=== PATIENT | female | born 1950 | race Caucasian/White ===

== ENCOUNTER 2019-03-27 09:57 | Day surgery (SDC) | payer MEDICARE ==
[~2019-03-27 09:57] MED LIST: ACETAMINOPHEN 325 MG TABLET PO PRN; CEFAZOLIN SODIUM 2 GM in DEXTROSE 5%-WATER 100 ML IV PRN; CELECOXIB 200 MG CAPSULE PO PRN; GABAPENTIN 100 MG CAPSULE PO PRN; LACTATED RINGERS 1000 ML IV PRN; LIDOCAINE 0.5% INJ-PF (5 MG/ML) 50 ML SDV SUBCUT PRN; ONDANSETRON HCL INJ/PF 4 MG/2 ML SDV IV PRN; OXYCODONE HCL SR 10 MG TABLET PO PRN; SCOPOLAMINE HYDROBROMIDE 1.5 MG PATCH.TD72 TD PRN; TRAMADOL HCL 50 MG TABLET PO PRN; TRANEXAMIC ACID INJ/PF 1,000 MG/10 ML SDV IV PRN; VANCOMYCIN HCL 1,000 MG in DEXTROSE 5%-WATER 250 ML IV PRN
[2019-03-27] MEDS ORDERED: FENTANYL CITRATE INJ/PF 100 MCG/2 ML AMPUL ONE (10:10)
[2019-03-27] MEDS ORDERED: EPHEDRINE SULFATE INJ 50 MG/1 ML AMPULE ONE (10:10)
[2019-03-27] MEDS ORDERED: MIDAZOLAM 2 MG/2 ML INJ ONE (10:10)
[2019-03-27] MEDS ORDERED: TRANEXAMIC ACID INJ/PF 1,000 MG/10 ML SDV ONE (10:11)
[2019-03-27] MEDS ORDERED: ONDANSETRON HCL INJ/PF 4 MG/2 ML SDV ONE ×3 (10:11→15:30)
[2019-03-27] MEDS ORDERED: PROPOFOL INJ 200 MG/20 ML VIAL IV ONE (10:11)
[2019-03-27] MEDS ORDERED: EPINEPHRINE INJ/PF 1 MG/1 ML AMPULE ONE (10:15)
[2019-03-27] MEDS ORDERED: CELECOXIB 200 MG CAPSULE ONE (10:23)
[2019-03-27] MEDS ORDERED: ACETAMINOPHEN 325 MG TABLET ONE (10:23)
[2019-03-27] MEDS ORDERED: OXYCODONE HCL SR 10 MG TABLET PO ONE (10:24)
[2019-03-27] MEDS ORDERED: GABAPENTIN 100 MG CAPSULE ONE (10:24)
[2019-03-27] MEDS ORDERED: CEFAZOLIN INJ 1 GM VIAL ONE (10:25)
[2019-03-27] MEDS ORDERED: TRAMADOL HCL 50 MG TABLET ONE (10:28)
[2019-03-27] MEDS ORDERED: SCOPOLAMINE HYDROBROMIDE 1.5 MG PATCH.TD72 ONE (10:28)
[2019-03-27] MEDS ORDERED: BACITRACIN INJ 50,000 UNIT VIAL IR ONE (12:24)
[2019-03-27] MEDS ORDERED: GENTAMICIN SULFATE INJ 80 MG/2 ML VIAL IV ONE (12:25)
[2019-03-27] MEDS ORDERED: VANCOMYCIN HCL INJ 1000 MG VIAL IV ONE (12:29)
[2019-03-27] MEDS ORDERED: KETOROLAC TROMETHAMINE INJ/PF 30 MG/1 ML SDV INJ ONE (12:30)
[2019-03-27] MEDS ORDERED: BUPIVACAINE HCL 0.25 % INJ/PF (2.5 MG/1 ML) 30 ML VIAL INJ ONE (12:30)
[2019-03-27] MEDS ORDERED: MEPERIDINE HCL/PF INJ 25 MG/1 ML DISP.SYRIN IV PRN (12:47)
[2019-03-27] MEDS ORDERED: PROMETHAZINE HCL INJ 25 MG/1 ML VIAL IV PRN ×3 (12:47→16:41)
[2019-03-27] MEDS ORDERED: ONDANSETRON HCL INJ/PF 4 MG/2 ML SDV IV PRN ×2 (12:47→16:14)
[2019-03-27] MEDS ORDERED: DIPHENHYDRAMINE HCL 50 MG/ML VIAL IV PRN (12:47)
[2019-03-27] MEDS ORDERED: MORPHINE SULFATE 10 MG/ML INJ IV PRN ×2 (12:47→16:41)
[2019-03-27] MEDS ORDERED: FENTANYL CITRATE INJ/PF 100 MCG/2 ML AMPUL IV PRN ×3 (12:47)
--- NOTE | 2019-03-27 14:12 | Operative Report ---
Operative Report DATE OF SURGERY: 03/27/19 PREOPERATIVE DIAGNOSIS: Right knee primary osteoarthritis POSTOPERATIVE DIAGNOSIS: Right knee primary osteoarthritis OPERATION: Right total knee arthroplasty SURGEON: KP SHERMAN JR ANESTHESIA: Spinal COMPLICATIONS: none PROCEDURE: Components: Left total knee: Biomet Vanguard 62.5 femur, 67 x 12 x tibia, and a 31 patella BRIEF HISTORY: 68year old female with severe degenerative arthritis of left knee, which has failed conservative treatment and has elected for a total knee arthroplasty. They had been having severe debilitating pain that was preventing her from performing daily activities including ambulating for short distances, getting in and out of there car, going up and down stairs, and overall decreas ing their quality of life due to their avoidance of activity because of pain. That failed conservative management including kgvs-ylf-xvqtabv pain medication such as Tylenol and ibuprofen. X-rays demonstrated severe cmyx-pa-lner osteoarthritis with subchondral sclerosis osteophyte formation and joint space narrowing. Risks include but are not limited to bleeding, infection, anesthesia, , injury to nerve or vessel, pain, scar, leg length inequality, dislocation, future surgery, and blood clots. Patient read through the pre-op counseling form and signed and solicited for surgery on their left knee. OPERATIVE PROCEDURE: Patient was brought to the operating room on and underwent spinal anesthesia. After proper anesthesia was obtained, patient was positioned, padded, prepped, and draped in the usual sterile fashion on the operating room table. 2 grams of Ancef and 1 g of vancomycin were given. Appropriate time out was performed. Anterior incision and medial-parapatella approach was performed. Severe degenerative arthritis was noted. Osteophytes were removed from the femur and tibia, and the remainder of the ACL and PCL were removed. The distal femur was drilled, the canal was irrigated and the distal femoral guide was placed. The distal femur was cut to 5 degrees of varus. The proximal tibia was then prepared and cut perpendicular to the tibial shaft axis and measured to a 67 tibia. The tensor was placed in flexion and the femur was sized to 62.5. The AP block was placed and anterior-posterior cuts were made. Posterior osteophytes were removed and the flexion gap measured to be 10 mm. The tensor was placed in extension and the extension gap was balanced with releases until the goniometer on the tensor measured to 0. A 10 block was used to confirm symmetric flexion and extension gaps. The femoral notch and chamfer cuts were made, and trial femur placed which had excellent fit. The rotating tibial plastic was placed and rotation marked. The stemmed tibial cutout was made for the stemmed tibial trial and excellent stability was had in flexion and extension. The patella AP aspect was measured to 20 mm and patella was cut parallel to the anterior patella surface. A 31 mm button was placed medially and superiorly as possible and the patella-button construct again measured 20 mm. The patella tracked well. No need for a lateral release. Cement fixation places made on the femur and tibia, and pulsatile irrigation of the eladio and soft tissue surfaces. The eladio surfaces were cleaned and dried, and cementation of the femur, tibia, and patella. Periarticular injection with Marcaine and Toradol was performed. The knee was irrigated with antibiotic solution, betadine solution, and antibiotic solution. A gram of Vancomycin was placed intra-articularly. The extensor mechanism was closed with number 2 Stratofix, the subcutaneous tissue closed with 2-0 Vicryl and the skin closed with 3-0 running monocryl. A silver dressing was applied. All needle sponge and instrument counts were correct. Patient was awakened from sedation anesthesia and taken to recovery room in good condition. Kp Sherman DO
[2019-03-27] MEDS ORDERED: VANCOMYCIN HCL INJ 1000 MG VIAL ONE (14:45)
[2019-03-27] MEDS ORDERED: BACITRACIN INJ 50,000 UNIT VIAL ONE (14:45)
[2019-03-27] MEDS ORDERED: ROPIVACAINE HCL 0.5% INJ/PF (5 MG/1 ML) 30 ML SDV ONE (14:52)
[2019-03-27] MEDS ORDERED: LIDOCAINE 2% INJ (20 MG/ML) 20 ML MDV ONE (14:52)
[2019-03-27] MEDS ORDERED: LIDOCAINE 2%/EPINEPHRINE INJ 20 ML VIAL ONE (14:52)
[2019-03-27] MEDS ORDERED: ONDANSETRON HCL INJ/PF 4 MG/2 ML SDV IV ONE (15:30)
--- NOTE | 2019-03-27 15:40 | RADIOLOGY REPORT (SQ) ---
EXAM DESCRIPTION: KNEE LEFT 2 VIEWS COMPLETED DATE/TIME: 03/27/2019 2:55 pm REASON FOR STUDY: post op M17.12 UNILATERAL PRIMARY OSTEOARTHRITIS, LEFT KNEE COMPARISON: None. NUMBER OF VIEWS: Two views. TECHNIQUE: AP and lateral radiographic images acquired of the left knee. LIMITATIONS: None. FINDINGS: Postoperative images show a total knee arthroplasty in good position. IMPRESSION: Total knee arthroplasty. Refer to operative note for further information. TECHNICAL DOCUMENTATION: JOB ID: [id number] [employer]- All Rights Reserved Reading location - IP/workstation name: [email or web address]
[2019-03-27] MEDS ORDERED: HYDRALAZINE HCL INJ/PF 20 MG/1 ML SDV IV PRN (16:41)
[2019-03-27] MEDS ORDERED: OXYCODONE-ACETAMINOPHEN 5-325 MG TABLET PO PRN (16:41)
[2019-03-27] MEDS ORDERED: METOPROLOL TARTRATE PF/INJ 5 MG/5 ML SDV IV PRN (16:43)
--- NOTE | 2019-03-27 17:30 | PDOC CONSULTATION ---
Consultation Consult Date: 03/27/19 Attending physician:: KE SHERMAN JR Provider Consulted: ASPEN BARRON Consult reason:: Medical managment History of Present Illness History of Present Illness: JULIA HUMPHREYS is a 68 year old female past medical history of hypertension, hyperlipidemia, hypothyroidism, diabetes, osteoarthritis who is status post left knee arthroplasty by orthopedic surgeons. Hospitalist was consulted for medical management. Was able to see patient postoperatively resting in bed, stating that she is very hungry, complaining of being nauseous, otherwise denying any fever, chills, abdominal pain, diarrhea, constipation or any urinary symptoms. Past Medical History Cardiac Medical History: Reports: Hyperlipidema, Hypertension Denies: Atrial Fibrillation, Congestive Heart Failure, Coronary Artery Disease, Myocardial Infarction, Peripheral Vascular Disease, Heart Murmur Pulmonary Medical History: Denies: Asthma, Bronchitis, Chronic Obstructive Pulmonary Disease (COPD), Sleep Apnea Neurological Medical History: Denies: Seizures Endocrine Medical History: Reports: Hypothyroidism Denies: Hyperthyroidism Malignancy Medical History: Reports: Breast Cancer Denies: Cervical Cancer, Ovarian Cancer GI Medical History: Reports: Gastroesophageal Reflux Disease Denies: Crohn's Disease, Hiatal Hernia Musculoskeltal Medical History: Reports: Arthritis Denies: Fibromyalgia Psychiatric Medical History: Denies: Bipolar Disorder, Depression, Post Traumatic Stress Disorder Past Surgical History Past Surgical History: Reports: Tubal Ligation Denies: Amputation, Appendectomy, Section, Cholecystectomy, Colostomy, Coronary Artery Bypass Graft, Gastric Bypass Surgery, Herniorrhaphy, Hysterectomy, Mastectomy, Pacemaker, Tonsillectomy Social History Smoking Status: Never Smoker Electronic Cigarette use?: No Frequency of Alcohol Use: Social Hx Recreational Drug Use: No Hx Prescription Drug Abuse: No - Advance Directive Resuscitation Status: Full Code Family History Parental Family History Reviewed: Yes Children Family History Reviewed: Yes Sibling(s) Family History Reviewed.: Yes Medication/Allergy Home Medications: Calcium Carbonate/Vitamin D3 [Calcium 600 + Vit D 400 Softgl] 1 cap PO DAILY 03/15/19 Cholecalciferol (Vitamin D3) [Vitamin D3] 2,000 unit PO DAILY 03/15/19 Losartan/Hydrochlorothiazide [Losartan-Hctz 100-25 mg Tab] 1 tab PO DAILY 03/15/19 Amlodipine Besylate [Norvasc 10 mg Tablet] 10 mg PO DAILY 03/19/19 Dulaglutide [Trulicity] 1.5 mg SQ Q7D 03/19/19 Empagliflozin [Jardiance] 10 mg PO DAILY 03/19/19 Fulvestrant [Faslodex Inj 250 mg/5 ml Syringe] 03/19/19 Insulin Regular, Human [Humulin R U-500 Kwikpen] 100 units SQ TID 03/19/19 Levothyroxine Sodium [Synthroid 0.075 mg Tablet] 0.075 mg PO DAILY 03/19/19 Loratadine [Claritin 10 mg Tablet] 10 mg PO PRN PRN 03/19/19 Lorcaserin HCl [Belviq Xr] 20 mg PO DAILY 03/19/19 Metformin HCl 500 mg PO BID 03/19/19 Nebivolol HCl [Bystolic 10 mg Tablet] 20 mg PO DAILY 03/19/19 Omeprazole 20 mg PO BID 03/19/19 Rosuvastatin Calcium 10 mg PO DAILY 03/19/19 Allergies/Adverse Reactions: metronidazole [From Flagyl] Allergy (Intermediate, Verified 03/06/19 13:45) Swelling of Throat Review of Systems Review of Systems: as per hpi Physical Exam Vital Signs: Temp Pulse Resp BP Pulse Ox 97.5 F 83 18 116/49 L 98 03/27/19 16:57 03/27/19 16:57 03/27/19 16:57 03/27/19 16:57 03/27/19 16:57 Intake & Output 03/26/19 03/27/19 03/28/19 06:59 06:59 06:59 Intake Total 0 Balance 0 General appearance: PRESENT: morbidly obese Head exam: PRESENT: atraumatic, normocephalic Respiratory exam: PRESENT: clear to auscultation matt. ABSENT: rales, rhonchi, wheezes Cardiovascular exam: PRESENT: RRR. ABSENT: diastolic murmur, rubs, systolic murmur GI/Abdominal exam: PRESENT: normal bowel sounds, soft. ABSENT: distended, guarding, mass, organolmegaly, rebound, tenderness Neurological exam: PRESENT: alert, awake, oriented to person, oriented to place, oriented to time, oriented to situation, CN II-XII grossly intact. ABSENT: motor sensory deficit Results Laboratory Results: 03/27/19 11:27 03/27/19 11:27 Potassium 4.1 Impressions: Knee X-Ray 03/27/19 14:14 IMPRESSION: Total knee arthroplasty. Refer to operative note for further information. Assessment and Plan - Diagnosis (1) Diabetes Qualifiers: Diabetes mellitus type: type 2 Is this a current diagnosis for this admission?: Yes Plan: No hemoglobin A1c available History of difficult to control diabetes. Sees an system programmer outpatient. Home medications are: Metformin 500 mg p.o. twice daily. Insulin regular 100 units subcutaneous 3 times daily. Trulicity 1.5 mg q. 7 days We will start on prandial and sliding scale insulin, metformin, diabetic diet, Accu-Chek, hypoglycemic protocol. Will obtain A1c. Restart home meds upon discharge. Outpatient PCP endocrinology follow-up. (2) Hypertension Is this a current diagnosis for this admission?: Yes Plan: Euvolemic. Normotensive. Home meds are Meds: Bystolic 20 mg p.o. daily, losartan 100 mg p.o. daily, hydrochlorothiazide 25 mg p.o. daily, amlodipine 10 mg p.o. daily. Restart home meds. Monitor volume status and vitals. Adjust meds as needed. Outpatient PCP follow-up. (3) Hyperlipidemia Is this a current diagnosis for this admission?: Yes Plan: Takes Crestor 10 mg p.o. daily. Restart home meds. Outpatient PCP follow-up. Diet and lifestyle modification recommended. (5) Obesity Qualifiers: Body mass index: BMI 40.0-44.9 Is this a current diagnosis for this admission?: Yes Plan: BMI 40.3. Lack of physical activity due to osteoarthritis may be a contributing factor. History of hypothyroidism. No TSH available. Diet and lifestyle modification recommended. (6) Osteoarthritis Qualifiers: Osteoarthritis location: knee Laterality: left Is this a current diagnosis for this admission?: Yes Plan: Status post left knee arthroplasty. Will defer management to orthopedics.
[2019-03-27] MEDS ORDERED: METFORMIN HCL 500 MG PO SCH (18:00)
[2019-03-27] MEDS ORDERED: INSULIN REGULAR HUMAN 100 UNIT SUBCUT SCH (18:00)
[2019-03-27] MEDS ORDERED: DEXTROSE 40% GEL 15 GM TUBE X 2 PO PRN (19:00)
[2019-03-27] MEDS ORDERED: GLUCAGON,HUMAN RECOMB 1 MG INJ IM PRN (19:00)
[2019-03-27] MEDS ORDERED: DEXTROSE 50%-WATER SYRINGE 25 GM/50 ML DOSE IV PRN (19:00)
[2019-03-27] MEDS ORDERED: DEXTROSE 40% GEL 15 GM TUBE PO PRN (19:00)
[2019-03-27] MEDS ORDERED: DEXTROSE 50%-WATER SYRINGE 12.5 GM/25 ML DOSE IV PRN (19:00)
[2019-03-27] MEDS: NEBIVOLOL HCL 10 MG TABLET PO SCH (19:01)
[2019-03-27] MEDS ORDERED: METFORMIN HCL 500 MG TABLET PO SCH (20:00)
[2019-03-27] MEDS: INSULIN LISPRO 100 UNIT/ML 3 ML VIAL SUBCUT SCH (21:15)
[2019-03-27] MEDS: PANTOPRAZOLE SODIUM 20 MG TABLET.DR PO SCH (21:16)
[2019-03-27] MEDS: CEFAZOLIN SODIUM 3 GM in DEXTROSE 5%-WATER 100 ML IV SCH (21:16)
[2019-03-27] MEDS ORDERED: ATORVASTATIN CALCIUM 20 MG TABLET PO SCH (22:00)
[2019-03-27] MEDS ORDERED: INSULIN REG, HUMAN 100 UNIT/ML 3 ML VIAL (PYX) SUBCUT SCH (22:00)
[2019-03-28] MEDS: CEFAZOLIN SODIUM 3 GM in DEXTROSE 5%-WATER 100 ML IV SCH (04:00)
[2019-03-28] MEDS ORDERED: ACETAMINOPHEN 325 MG TABLET ONE (05:20)
[2019-03-28] MEDS ORDERED: OXYCODONE HCL IR 5 MG TABLET PO PRN ×2 (07:15)
[2019-03-28] MEDS ORDERED: MORPHINE SULFATE 10 MG/ML INJ IV PRN (07:15)
[2019-03-28] MEDS ORDERED: TRAMADOL HCL 50 MG TABLET PO PRN (07:16)
[2019-03-28] MEDS ORDERED: DIPHENHYDRAMINE HCL 25 MG CAPSULE PO PRN (07:18)
[2019-03-28] MEDS ORDERED: ZOLPIDEM TARTRATE 5 MG TABLET PO PRN (07:18)
[2019-03-28] MEDS ORDERED: NORMAL SALINE 1000 ML 1,000 ML IV PRN (07:20)
[2019-03-28] MEDS ORDERED: DOCUSATE SODIUM 100 MG CAPSULE PO PRN (07:20)
[2019-03-28] MEDS ORDERED: ONDANSETRON 4 MG TAB.RAPDIS PO PRN (07:21)
[2019-03-28 07:42] LABS: ALBUMIN 3.9 g/dL (3.5-5.0); ALKALINE PHOSPHATASE 49 U/L (38-126); ANION GAP 11 (5-19); ASPARTATE AMINO TRANSFERASE 20 U/L (14-36); BILIRUBIN,DIRECT 0.2 mg/dL (0.0-0.4); BILIRUBIN,TOTAL 0.4 mg/dL (0.2-1.3); BLOOD UREA NITROGEN 21 mg/dL (7-20); CALCIUM 9.5 mg/dL (8.4-10.2); CARBON DIOXIDE 26 mmol/L (22-30); CHLORIDE 102 mmol/L (98-107); GLUCOSE 229 mg/dL (75-110); POTASSIUM 4.2 mmol/L (3.6-5.0); TOTAL PROTEIN 6.1 g/dL (6.3-8.2)
[2019-03-28 08:01] LABS: ABSOLUTE EOSINOPHILS # (AUTO) 0.1 10^3/uL (0.0-0.6); ABSOLUTE LYMPHOCYTES (AUTO) 0.9 10^3/uL (0.5-4.7); ABSOLUTE MONOCYTES (AUTO) 0.5 10^3/uL (0.1-1.4); ABSOLUTE NEUT (AUTO) 6.1 10^3/uL (1.7-8.2); BASOPHILS % (AUTO) 0.4 % (0-2); EOSINOPHILS % (AUTO) 1.1 % (0-6); HEMATOCRIT 36.6 % (36.0-47.0); LYMPHOCYTES % (AUTO) 11.9 % (13-45); MEAN CORPUSCULAR HGB CONC 32.8 g/dL (32.0-36.0); MEAN CORPUSCULAR VOLUME 79 fl (80-97); MONOCYTES % (AUTO) 6.4 % (3-13); PLATELET COUNT 209 10^3/uL (150-450); RED BLOOD COUNT 4.61 10^6/uL (3.72-5.28); RED CELL DISTRIBUTION WIDTH 15.3 % (11.5-14.0); SEGMENTED NEUTROPHILS % (AUTO) 80.2 % (42-78); TOTAL CELLS COUNTED % (AUTO) 100 %; WHITE BLOOD COUNT 7.6 10^3/uL (4.0-10.5)
--- NOTE | 2019-03-28 08:18 | PDOC PROGRESS REPORT ---
Subjective Progress Note for:: 03/28/19 Subjective:: The patient is doing well this AM. Pain is present but not out of proportion and well controlled on their current medications. There are no new symptoms or overnight events. Overall they are felling well without complaints. They deny chest pain, shortness of breath or motor or sensory loss. Reason For Visit: M17.12 UNILATERAL PRIMARY OSTEOARTHRITIS, LEFT KNE Physical Exam Vital Signs: Temp Pulse Resp BP Pulse Ox 97.8 F 92 20 128/57 H 90 L 03/27/19 23:49 03/27/19 23:49 03/27/19 23:49 03/27/19 23:49 03/27/19 23:49 Intake & Output 03/27/19 03/28/19 03/29/19 06:59 06:59 06:59 Intake Total 3020 Output Total 50 Balance 2970 Physical Exam: General appearance: PRESENT: no acute distress, cooperative, obese Head exam: PRESENT: atraumatic, normocephalic Eye exam: PRESENT: EOMI Ear exam: PRESENT: normal external ear exam Mouth exam: PRESENT: neck supple Neck exam: ABSENT: tracheal deviation Respiratory exam: PRESENT: symmetrical, unlabored. ABSENT: accessory muscle use, wheezes Pulses: PRESENT: normal radial pulses, normal dorsalis pedis pul Vascular exam: PRESENT: normal capillary refill GI/Abdominal exam: ABSENT: distended, firm Extremities exam: PRESENT: full ROM of bilateral shoulders, elbows wrists, knees, hips and ankles without pain Musculoskeletal exam: PRESENT: full ROM, normal inspection of all 4 extremities aside from that noted below. Neurological exam: PRESENT: alert, awake, oriented to person, oriented to place, oriented to time Psychiatric exam: PRESENT: appropriate affect. ABSENT: agitated Focused psych exam: ABSENT: catatonic Skin exam: PRESENT: intact. ABSENT: dry All as above aside from that noted in the HPI and the following: Left lower extremity -Pulses 2+ distally -Compartments soft -Wound clean dry and intact no drainage in appropriate swelling for postop day -Sensation grossly intact to L3-4-5 S1 -Motor grossly intact to EHL TA gastroc and quad - Able to perform quad extension and elevate heel off of bed. Results Laboratory Results: 03/28/19 06:59 03/28/19 06:59 03/27/19 03/28/19 03/28/19 11:27 06:59 06:59 WBC 7.6 RBC 4.61 Hgb 12.0 Hct 36.6 MCV 79 L MCH 26.0 L MCHC 32.8 RDW 15.3 H Plt Count 209 Seg Neutrophils % 80.2 H Sodium 139.0 Potassium 4.1 4.2 Chloride 102 Carbon Dioxide 26 Anion Gap 11 BUN 21 H Creatinine 1.02 Est GFR ( Amer) > 60 Glucose 229 H Calcium 9.5 Magnesium 1.7 Total Bilirubin 0.4 AST 20 Alkaline Phosphatase 49 Total Protein 6.1 L Albumin 3.9 Impressions: Knee X-Ray 03/27/19 14:14 IMPRESSION: Total knee arthroplasty. Refer to operative note for further information. Assessment & Plan - Diagnosis (1) Status post total left knee replacement Is this a current diagnosis for this admission?: Yes Plan: - 2 doses of Ancef postoperatively q 8 hours to complete 24 hours pe rioperatively -Weightbearing as tolerated, no precautions, encourage out of bed DEANGELO for ADL training - PT/OT -aspirin 325 daily for DVT prophylaxis for 6 weeks -multimodal pain management to avoid excessive narcotics, including gabapentin, tramadol, Toradol, acetaminophen. -Dressing should not be removed for 7 to 10 days until seen in the office -May shower with the dressing intact, if it starts to come off she should not get the incision wet. -I would like to follow the patient my office within the next 7 to [address] [place] [address]. in [place] office #: [phone] - Time Time Spent with patient: 15-24 minutes
[2019-03-28] MEDS: INSULIN LISPRO 100 UNIT/ML 3 ML VIAL SUBCUT SCH ×2 (08:25→12:23)
[2019-03-28] MEDS ORDERED: VITAMIN D3 PO SCH (10:00)
[2019-03-28] MEDS ORDERED: GABAPENTIN 100 MG CAPSULE PO SCH (10:00)
[2019-03-28] MEDS ORDERED: CALCIUM CARBONATE 250 MG/VITAMIN D3 125 UNIT TABLET PO SCH (10:00)
[2019-03-28] MEDS ORDERED: LOSARTAN POTASSIUM 50 MG TABLET PO SCH (10:00)
[2019-03-28] MEDS ORDERED: HYDROCHLOROTHIAZIDE 25 MG TABLET PO SCH (10:00)
[2019-03-28] MEDS ORDERED: (PENDING PHARMACY ID) (Rosuvastatin Calcium [Rosuvastatin Calcium] 10 MG) PO SCH (10:00)
[2019-03-28] MEDS ORDERED: (PENDING PHARMACY ID) (Cholecalciferol (Vitamin D3) [Vitamin D3] 2,000 UNIT) PO SCH (10:00)
[2019-03-28] MEDS ORDERED: POLYETHYLENE GLYCOL 3350 POWDER 17 GM/1 PACKET PO SCH (10:00)
[2019-03-28] MEDS ORDERED: CALCIUM CARBONATE PO SCH (10:00)
[2019-03-28] MEDS ORDERED: CHOLECALCIFEROL (D3) 1,000 UNIT (25 MCG) TABLET PO SCH (10:00)
[2019-03-28] MEDS ORDERED: [UNRECOGNIZED DRUG - OTHER] PO SCH (10:00)
[2019-03-28] MEDS ORDERED: (PENDING PHARMACY ID) (Losartan/Hydrochlorothiazide [Losartan-Hctz 100-25 Mg Tab] 1 TAB) PO SCH (10:00)
[2019-03-28] MEDS ORDERED: AMLODIPINE BESYLATE 10 MG TABLET PO SCH (10:00)
[2019-03-28] MEDS ORDERED: KETOROLAC TROMETHAMINE INJ/PF 30 MG/1 ML SDV IV SCH (10:00)
[2019-03-28] MEDS ORDERED: LEVOTHYROXINE SODIUM 0.075 MG TABLET PO SCH (10:00)
[2019-03-28] MEDS ORDERED: (PENDING PHARMACY ID) (Empagliflozin [Jardiance] 10 MG) PO SCH (10:00)
[2019-03-28] MEDS: NEBIVOLOL HCL 10 MG TABLET PO SCH (10:34)
[2019-03-28] MEDS: PANTOPRAZOLE SODIUM 20 MG TABLET.DR PO SCH (10:34)
[2019-03-28 13:26] VITALS: BP 115/61
[2019-03-28] MEDS ORDERED: ACETAMINOPHEN 325 MG TABLET PO SCH (14:00)
[2019-03-28] MEDS ORDERED: (PENDING PHARMACY ID) (Metformin Hcl [Metformin Hcl] 1,000 MG) PO SCH (18:00)
[2019-03-29] MEDS ORDERED: CELECOXIB 200 MG CAPSULE PO SCH (10:00)
[2019-03-29] MEDS ORDERED: ASPIRIN 325 MG TABLET, ENT COATED PO SCH (10:00)
--- NOTE | 2019-04-01 20:14 | PDOC DISCHARGE SUMMARY ---
Impression - Admit/DC Date/PCP Admission Date/Primary Care Provider: 03/27/19 Discharge Date: 03/28/19 - Discharge Diagnosis (1) Status post total left knee replacement Is this a current diagnosis for this admission?: Yes - Assessment Summary: Julia Humphreys is a very pleasant 68-year-old female who presented to my clinic with chronic right knee pain that is been going on for over a year. After th orough work-up and attempts at conservative treatment including activity modification and njzc-qha-impnzqj pain medication, they were having severe difficulty with ambulation and was over the counter pain medication for daily activity. They found the pain debilitating and decreasing thier quality of life as they were unable to perform activities of daily living such as ambulating short distances and getting in and out of the car. After a thorough work-up including x-rays that demonstrated joint space narrowing, vgiu-ll-asid contact, subchondral sclerosis, and osteophyte formation as well as discussing risks and benefits and other treatment options, the patient elected to proceed with a right total knee arthroplasty. They were brought to the operating room on 03/27/19 and underwent a right total knee arthroplasty and tolerated procedure very well with out complication. They were then admitted to the hospital floor for postoperative medical management, monitoring, and pain control. On postoperative day #1 they were ambulating well with physical therapy, to the degree that they approved them for discharge home. They were discharged home on 03/28/19. They had no acute events or complications over the course of their stay. All detailed instructions and prescriptions were provided to the patient prior to admission on the year prior office visit. - Additional Information Resuscitation Status: Full Code Discharge Diet: Diabetic Discharge Activity: Activity As Tolerated, No Driving, Keep Legs Elevated, No Lifting/Push/Pulling, Slowly Increase Activity, No tub bath, Walk Frequently Referrals: [facility] [Outside] KE SHERMAN JR, DO [ACTIVE PROVISIONAL STAFF] - 04/09/19 1:20 pm Home Medications: Calcium Carbonate/Vitamin D3 [Calcium 600 + Vit D 400 Softgl] 1 cap PO DAILY 03/15/19 Losartan/Hydrochlorothiazide [Losartan-Hctz 100-25 mg Tab] 1 tab PO DAILY 03/15/19 Amlodipine Besylate [Norvasc 10 mg Tablet] 10 mg PO DAILY 03/19/19 Dulaglutide [Trulicity] 1.5 mg SQ MO@1000 03/19/19 Empagliflozin [Jardiance] 10 mg PO DAILY 03/19/19 Fulvestrant [Faslodex Inj 250 mg/5 ml Syringe] 500 mg INJ .QMONTHLY 03/19/19 Insulin Regular, Human [Humulin R U-500 Kwikpen] 100 units SQ MEALS 03/19/19 Levothyroxine Sodium [Synthroid 0.075 mg Tablet] 0.075 mg PO Q6AM 03/19/19 Loratadine [Claritin 10 mg Tablet] 10 mg PO DAILY 03/19/19 Lorcaserin HCl [Belviq Xr] 20 mg PO DAILY 03/19/19 Metformin HCl 1,000 mg PO QPM 03/19/19 Nebivolol HCl [Bystolic 10 mg Tablet] 20 mg PO DAILY 03/19/19 Omeprazole 20 mg PO BID 03/19/19 Rosuvastatin Calcium 10 mg PO DAILY 03/19/19 Cholecalciferol (Vitamin D3) [Vitamin D3 1000 Unit Tablet] 3,000 unit PO DAILY 03/27/19 History of Present Illiness History of Present Illness: JULIA HUMPHREYS is a 68 year old female Physical Exam Vital Signs: Temp Pulse Resp BP Pulse Ox 98.1 F 80 16 115/61 92 03/28/19 13:25 03/28/19 13:25 03/28/19 13:25 03/28/19 13:25 03/28/19 13:25 Results Laboratory Results: WBC 7.6 10^3/uL (4.0-10.5) 03/28/19 06:59 RBC 4.61 10^6/uL (3.72-5.28) 03/28/19 06:59 Hgb 12.0 g/dL (12.0-15.5) 03/28/19 06:59 Hct 36.6 % (36.0-47.0) 03/28/19 06:59 MCV 79 fl (80-97) L 03/28/19 06:59 MCH 26.0 pg (27.0-33.4) L 03/28/19 06:59 MCHC 32.8 g/dL (32.0-36.0) 03/28/19 06:59 RDW 15.3 % (11.5-14.0) H 03/28/19 06:59 Plt Count 209 10^3/uL (150-450) 03/28/19 06:59 Lymph % (Auto) 11.9 % (13-45) L 03/28/19 06:59 [place] % (Auto) 6.4 % (3-13) 03/28/19 06:59 Eos % (Auto) 1.1 % (0-6) 03/28/19 06:59 Baso % (Auto) 0.4 % (0-2) 03/28/19 06:59 Absolute Neuts (auto) 6.1 10^3/uL (1.7-8.2) 03/28/19 06:59 Absolute Lymphs (auto) 0.9 10^3/uL (0.5-4.7) 03/28/19 06:59 Absolute Monos (auto) 0.5 10^3/uL (0.1-1.4) 03/28/19 06:59 Absolute Eos (auto) 0.1 10^3/uL (0.0-0.6) 03/28/19 06:59 Absolute Basos (auto) 0.0 10^3/uL (0.0-0.2) 03/28/19 06:59 Seg Neutrophils % 80.2 % (42-78) H 03/28/19 06:59 Sodium 139.0 mmol/L (137-145) 03/28/19 06:59 Potassium 4.2 mmol/L (3.6-5.0) 03/28/19 06:59 Chloride 102 mmol/L (98-107) 03/28/19 06:59 Carbon Dioxide 26 mmol/L (22-30) 03/28/19 06:59 Anion Gap 11 (5-19) 03/28/19 06:59 BUN 21 mg/dL (7-20) H 03/28/19 06:59 Creatinine 1.02 mg/dL (0.52-1.25) 03/28/19 06:59 Est GFR ( Amer) > 60 (>60) 03/28/19 06:59 Est GFR (MDRD) Non-Af 54 (>60) L 03/28/19 06:59 Glucose 229 mg/dL (75-110) H 03/28/19 06:59 POC Glucose 300 mg/dL (70-110) H 03/28/19 11:13 Hemoglobin A1c % 7.7 % (4.7-6.0) H 03/28/19 06:59 Calcium 9.5 mg/dL (8.4-10.2) 03/28/19 06:59 Magnesium 1.7 mg/dL (1.6-2.3) 03/28/19 06:59 Total Bilirubin 0.4 mg/dL (0.2-1.3) 03/28/19 06:59 Direct Bilirubin 0.2 mg/dL (0.0-0.4) 03/28/19 06:59 Neonat Total Bilirubin Not Reportable 03/28/19 06:59 Neonat Direct Bilirubin Not Reportable 03/28/19 06:59 Neonat Indirect Bili Not Reportable 03/28/19 06:59 AST 20 U/L (14-36) 03/28/19 06:59 ALT 17 U/L (<35) 03/28/19 06:59 Alkaline Phosphatase 49 U/L (38-126) 03/28/19 06:59 Total Protein 6.1 g/dL (6.3-8.2) L 03/28/19 06:59 Albumin 3.9 g/dL (3.5-5.0) 03/28/19 06:59 TSH 0.86 uIU/mL (0.47-4.68) 03/28/19 06:59 Impressions: Knee X-Ray 03/27/19 14:14 IMPRESSION: Total knee arthroplasty. Refer to operative note for further information. Stroke Is this a Stroke Patient?: No Acute Heart Failure - Is this a Heart Failure Patient?: No
[2019-04-02] MEDS ORDERED: (PENDING PHARMACY ID) (Dulaglutide [Trulicity] 1.5 MG) SUBCUT SCH (10:00)
== END 2019-03-28 14:00 | disposition home or self-care (01) ==
LOC: OROUT 09:57 → EDSTATUS 13:30 → 4S 15:50 → OROUT 03-28 14:00
PROVIDERS: ATTEND Orthopaedic Surgery
DX: M17.12 Unilateral primary osteoarthritis, left knee (principal); M17.11 Unilateral primary osteoarthritis, right knee; E11.621 Type 2 diabetes mellitus with foot ulcer; E03.9 Hypothyroidism, unspecified; E78.5 Hyperlipidemia, unspecified; I10 Essential (primary) hypertension; Z79.4 Long term (current) use of insulin; Z79.899 Other long term (current) drug therapy; Z85.3 Personal history of malignant neoplasm of breast; E11.9 Type 2 diabetes mellitus without complications; Z79.84 Long term (current) use of oral hypoglycemic drugs; E66.9 Obesity, unspecified; Z68.41 Body mass index [BMI] 40.0-44.9, adult; Z79.82 Long term (current) use of aspirin
CPT/HCPCS: 27447; 36415; 82962; 83735; 84132; 84443; 85025; 80053; 83036; 73560; 97530; 97116; 97162; 97165; 01402; C1713; C1887; J2795; A9270 ×22; J2250; J3490 ×2; J0690 ×2; J0171; J3010; J2405; J7060 ×3; J2704; J3370; J1580; J1815; J1885

== ENCOUNTER 2019-07-24 08:02 | Day surgery (SDC) | payer MEDICARE ==
[~2019-07-24 08:02] MED LIST changes: +DEXAMETHASONE SOD PHOSPHATE INJ 4 MG/1 ML VIAL ONE; +EPINEPHRINE INJ/PF 1 MG/1 ML AMPULE ONE; +FENTANYL CITRATE INJ/PF 100 MCG/2 ML AMPUL ONE; -LACTATED RINGERS 1000 ML IV PRN; +MIDAZOLAM 2 MG/2 ML INJ ONE; +NORMAL SALINE 1000 ML (RENAL PATIENTS) IV PRN; +ONDANSETRON HCL INJ/PF 4 MG/2 ML SDV ONE; +PROPOFOL INJ 200 MG/20 ML VIAL IV ONE; +TRANEXAMIC ACID INJ/PF 1,000 MG/10 ML SDV ONE
[2019-07-24] MEDS ORDERED: TRAMADOL HCL 50 MG TABLET ONE (08:08)
[2019-07-24] MEDS ORDERED: ACETAMINOPHEN 325 MG TABLET ONE (08:08)
[2019-07-24] MEDS ORDERED: CELECOXIB 200 MG CAPSULE ONE (08:08)
[2019-07-24] MEDS ORDERED: ONDANSETRON HCL INJ/PF 4 MG/2 ML SDV ONE (08:09)
[2019-07-24] MEDS ORDERED: SCOPOLAMINE HYDROBROMIDE 1.5 MG PATCH.TD72 ONE (08:09)
[2019-07-24] MEDS ORDERED: OXYCODONE HCL SR 10 MG TABLET PO ONE (08:09)
[2019-07-24 09:17] LABS: POTASSIUM 4.6 mmol/L (3.6-5.0)
[2019-07-24] MEDS ORDERED: LIDOCAINE 1% INJ-PF (10 MG/ML) 30 ML SDV ONE (09:53)
[2019-07-24] MEDS ORDERED: KETOROLAC TROMETHAMINE INJ/PF 30 MG/1 ML SDV ONE (09:53)
[2019-07-24] MEDS ORDERED: VANCOMYCIN HCL INJ 1000 MG VIAL ONE (09:53)
[2019-07-24] MEDS ORDERED: BUPIVACAINE HCL 0.25 % INJ/PF (2.5 MG/1 ML) 30 ML VIAL ONE (09:53)
[2019-07-24] MEDS ORDERED: MEPERIDINE HCL/PF INJ 25 MG/1 ML DISP.SYRIN IV PRN (11:40)
[2019-07-24] MEDS ORDERED: ONDANSETRON HCL INJ/PF 4 MG/2 ML SDV IV PRN (11:40)
[2019-07-24] MEDS ORDERED: MORPHINE SULFATE 10 MG/ML INJ IV PRN ×2 (11:40→14:10)
[2019-07-24] MEDS ORDERED: PROMETHAZINE HCL INJ 25 MG/1 ML VIAL IV PRN ×2 (11:40)
[2019-07-24] MEDS ORDERED: DIPHENHYDRAMINE HCL 50 MG/ML VIAL IV PRN (11:40)
[2019-07-24] MEDS ORDERED: FENTANYL CITRATE INJ/PF 100 MCG/2 ML AMPUL IV PRN ×3 (11:40)
[2019-07-24] MEDS ORDERED: ROPIVACAINE HCL 0.5% INJ/PF (5 MG/1 ML) 30 ML SDV ONE (13:10)
[2019-07-24] MEDS ORDERED: LIDOCAINE 2% INJ (20 MG/ML) 20 ML MDV ONE (13:10)
[2019-07-24] MEDS ORDERED: LIDOCAINE 1%/EPINEPHRINE INJ 20 ML VIAL ONE (13:11)
[2019-07-24] MEDS ORDERED: PROPOFOL INJ 200 MG/20 ML VIAL IV ONE (13:15)
[2019-07-24] MEDS ORDERED: TRANEXAMIC ACID INJ/PF 1,000 MG/10 ML SDV ONE (13:50)
--- NOTE | 2019-07-24 13:50 | Operative Report ---
Operative Report DATE OF SURGERY: 07/24/19 PREOPERATIVE DIAGNOSIS: Severe right knee primary osteoarthritis POSTOPERATIVE DIAGNOSIS: Severe right knee primary osteoarthritis OPERATION: Right total knee arthroplasty SURGEON: KP SHERMAN JR ANESTHESIA: Spinal COMPLICATIONS: None ESTIMATED BLOOD LOSS: 20 cc PROCEDURE: Components: [employer] Vanguard total knee: 60 PS femur, 71 x 10 tibia, and a 34 patella OPERATIVE PROCEDURE: Patient was brought to the operating room and spinal anesthesia was administered. After proper anesthesia was obtained, patient was positioned, padded, prepped, and draped in the usual sterile fashion on the operating room table. 2 grams of Ancef and 1 g of vancomycin were given. Appropriate time out was performed. Anterior incision and medial-parapatella approach was performed. Severe degenerative arthritis was noted. Osteophytes were removed from the femur and tibia, and the remainder of the ACL and PCL were removed. The proximal tibia was then prepared and cut perpendicular to the tibial shaft axis and measured to a 71 tibia. The distal femur was drilled, the canal was irrigated and the distal femoral guide was placed. The distal femur was cut 13 mm to 5 degrees of varus. An extension 10 block was placed in the gap was found to be ideal. The tensor was placed in extension and the extension gap was balanced with releases until the goniometer on the tensor measured to 0. The tensor was placed in flexion and the femur was sized to 60. Drill holes were placed to the appropri ate femoral rotation. The AP block was then placed and anterior-posterior cuts were made. After this the posterior condyles were removed and any posterior osteophytes were removed with the assistance of a lamina bunker worker, curved osteotome and a mallet and curved curette.this was then checked in flexion with the 10 block which was found to be a great fit. Anterior-posterior and chamfer cuts were made followed by notch cut. The femoral trial was then placed and the combination of the tibial baseplate and the 10 mm polyethylene liner were then placed and the knee was taken through a range of motion with the trials in. This had excellent balance in extension and flexion as well as patellar tracking. The patella AP aspect was measured to 21 mm and the patella was cut parallel to the anterior patella surface. A 34 mm button was placed medially and superiorly as possible and the patella-button construct again measured 21 mm. This was again taken through a range of motion and found to have excellent balance, stability and ease of full motion. The rotation of the tibial baseplate was marked, the tibial was anteriorly subluxed and the tibial component was pinned and drilled and punched. All the trials were then removed and the wound was copiously irrigated with sterile saline followed by a Betadine soak. After pulsatile irrigation of the eladio and soft tissue surfaces, the eladio surfaces were cleaned and dried, and cementation of the femur, tibia, and patella was performed. All excess cement was thoroughly removed. The knee was placed in slight flexion until cement was hard. Periarticular injection with Lidocaine, Marcaine and Toradol was performed. The knee was irrigated copiously. A gram of Vancomycin was placed intra-articularly. The extensor mechanism was closed with 0 vicryl tacking sutures and number 2 Stratofix. The subcutaneous tissue was closed with 2-0 monocryl and the skin closed with 3-0 running monocryl. A silver dressing was applied. All needle sponge and instrument counts were correct. Patient was awakened from sedation anesthesia and taken to recovery room in good condition. Kp Sherman DO
[2019-07-24] MEDS ORDERED: OXYCODONE HCL IR 5 MG TABLET PO PRN ×2 (14:09)
[2019-07-24] MEDS ORDERED: TRAMADOL HCL 50 MG TABLET PO PRN (14:10)
[2019-07-24] MEDS ORDERED: PANTOPRAZOLE SODIUM 20 MG TABLET.DR PO PRN (14:12)
[2019-07-24] MEDS ORDERED: DIPHENHYDRAMINE HCL 25 MG CAPSULE PO PRN (14:12)
[2019-07-24] MEDS ORDERED: ZOLPIDEM TARTRATE 5 MG TABLET PO PRN (14:12)
[2019-07-24] MEDS ORDERED: DOCUSATE SODIUM 100 MG CAPSULE PO PRN (14:13)
[2019-07-24] MEDS ORDERED: NORMAL SALINE 1000 ML 1,000 ML IV PRN (14:13)
[2019-07-24] MEDS ORDERED: ONDANSETRON 4 MG TAB.RAPDIS PO PRN (14:14)
--- NOTE | 2019-07-24 14:25 | RADIOLOGY REPORT (SQ) ---
EXAM DESCRIPTION: KNEE RIGHT 2 VIEWS COMPLETED DATE/TIME: 07/24/2019 1:32 pm REASON FOR STUDY: POST OP PLACEMENT M17.11 UNILATERAL PRIMARY OSTEOARTHRITIS, RIGHT KNEE Z79.899 O [employer] (CURRENT) DRUG THERAPY COMPARISON: None. NUMBER OF VIEWS: Two views. TECHNIQUE: AP and lateral radiographic images acquired of the right knee. LIMITATIONS: None. FINDINGS: Postoperative images show a right knee arthroplasty in good position. IMPRESSION: Right knee arthroplasty. Refer to operative note for further information. TECHNICAL DOCUMENTATION: JOB ID: [id number] 2010 [employer]- All Rights Reserved Reading location - IP/workstation name: [email or web address]
[2019-07-24] MEDS: ACETAMINOPHEN 325 MG TABLET PO SCH (17:57)
[2019-07-24] MEDS: GABAPENTIN 100 MG CAPSULE PO SCH (22:08)
[2019-07-24] MEDS: KETOROLAC TROMETHAMINE INJ/PF 30 MG/1 ML SDV IV SCH (22:08)
[2019-07-24] MEDS: CEFAZOLIN SODIUM 2 GM in DEXTROSE 5%-WATER 100 ML IV SCH (22:09)
[2019-07-25] MEDS: ACETAMINOPHEN 325 MG TABLET PO SCH ×2 (01:49→09:09)
[2019-07-25] MEDS: CEFAZOLIN SODIUM 2 GM in DEXTROSE 5%-WATER 100 ML IV SCH (05:40)
[2019-07-25] MEDS: KETOROLAC TROMETHAMINE INJ/PF 30 MG/1 ML SDV IV SCH (05:40)
[2019-07-25 07:23] VITALS: BP 136/62
--- NOTE | 2019-07-25 07:24 | PDOC PROGRESS REPORT ---
Subjective Progress Note for:: 07/25/19 Subjective:: The patient is doing well this AM. Pain is present but not out of proportion and well controlled on their current medications. There are no new symptoms or overnight events. Overall they are felling well without complaints. They deny chest pain, shortness of breath or motor or sensory loss. Reason For Visit: M17.11 UNILATERAL PRIMARY OSTEOARTHRITIS, RIGHT KN Physical Exam Vital Signs: Temp Pulse Resp BP Pulse Ox 98.6 F 80 17 136/60 H 98 07/24/19 23:33 07/24/19 23:33 07/24/19 23:33 07/24/19 23:33 07/24/19 23:33 Intake & Output 07/24/19 07/25/19 07/26/19 06:59 06:59 06:59 Intake Total 2620 Output Total 1815 Balance 805 Weight 108.4 kg Physical Exam: Right lower extremity -Pulses 2+ distally -Compartments soft -Wound clean dry and intact no drainage, appropriate appearance for postop day 1 -Sensation grossly intact to L3-4-5 S1 -Motor grossly intact to EHL TA gastroc and quad - Able to perform quad extension and elevate heel off of bed. Results Laboratory Results: 07/24/19 08:24 07/24/19 08:24 Potassium 4.6 Glucose 212 H Impressions: Knee X-Ray 07/24/19 00:00 IMPRESSION: Right knee arthroplasty. Refer to operative note for further information. Assessment & Plan - Diagnosis (1) Status post total right knee replacement Is this a current diagnosis for this admission?: Yes Plan: - 2 doses of Ancef postoperatively q 8 hours to complete 24 hours perioperatively -Weightbearing as tolerated, no precautions, encourage out of bed DEANGELO for ADL training - PT/OT - Keep knee extended in bed, rolled towel under the ankle to obtain full extension -aspirin 325 daily for DVT prophylaxis for 6 weeks -multimodal pain management to avoid excessive narcotics, including gabapentin, tramadol, Toradol, acetaminophen. -Dressing should not be removed for 7 to 10 days until seen in the office -May shower with the dressing intact, if it starts to come off she should not get the incision wet. -I would like to follow the patient my office within the next 7 to [address] at [address] [place] [address]. in [place] office #: [phone] - Time Time Spent with patient: Less than 15 minutes
--- NOTE | 2019-07-25 07:29 | PDOC DISCHARGE SUMMARY ---
Impression - Admit/DC Date/PCP Discharge Date: 07/25/19 - Discharge Diagnosis (1) Status post total right knee replacement Is this a current diagnosis for this admission?: Yes - Additional Information Resuscitation Status: Full Code Discharge Diet: Diabetic Discharge Activity: Activity As Tolerated, No Driving, Keep Legs Elevated, No tub bath, Walk Frequently Home Medications: Calcium Carbonate/Vitamin D3 [Calcium 600 + Vit D 400 Softgl] 1 cap PO DAILY 03/15/19 Losartan/Hydrochlorothiazide [Losartan-Hctz 100-25 mg Tab] 1 tab PO DAILY 03/15/19 Amlodipine Besylate [Norvasc 10 mg Tablet] 10 mg PO DAILY 03/19/19 Dulaglutide [Trulicity] 1.5 mg SQ MO@1000 03/19/19 Empagliflozin [Jardiance] 10 mg PO DAILY 03/19/19 Fulvestrant [Faslodex Inj 250 mg/5 ml Syringe] 500 mg INJ .QMONTHLY 03/19/19 Insulin Regular, Human [Humulin R U-500 Kwikpen] 100 units SQ MEALS 03/19/19 Levothyroxine Sodium [Synthroid 0.075 mg Tablet] 0.075 mg PO Q6AM 03/19/19 Loratadine [Claritin 10 mg Tablet] 10 mg PO DAILYP PRN 03/19/19 Metformin HCl 1,000 mg PO QPM 03/19/19 Nebivolol HCl [Bystolic 10 mg Tablet] 20 mg PO DAILY 03/19/19 Omeprazole 20 mg PO BID 03/19/19 Rosuvastatin Calcium 10 mg PO DAILY 03/19/19 Cholecalciferol (Vitamin D3) [Vitamin D3 1000 Unit Tablet] 3,000 unit PO DAILY 03/27/19 Acetaminophen [Tylenol 325 mg Tablet] 975 mg PO Q8A tablet 07/25/19 Aspirin [Aspirin 325 mg Tablet] 325 mg PO DAILY tablet 07/25/19 Celecoxib [Celebrex 200 mg Capsule] 200 mg PO DAILY capsule 07/25/19 Gabapentin [Neurontin 100 mg Capsule] 100 mg PO Q12 capsule 07/25/19 Oxycodone HCl [Oxy-Ir 5 mg Tablet] 5 mg PO Q4HP PRN tablet 07/25/19 Oxycodone HCl [Oxy-Ir 5 mg Tablet] 10 mg PO Q4HP PRN tablet 07/25/19 Tramadol HCl [Ultram 50 mg Tablet] 50 mg PO Q4HP PRN tablet 07/25/19 History of Present Illiness History of Present Illness: Ms. Abreu is a very pleasant 69-year-old female who presented to my clinic with chronic right knee pain that is been going on for over a year. After thorough work-up and attempts at conservative treatment including activity modification and [id number] pain medication, they were having severe difficulty with ambulation and was over the counter pain medication for daily activity. They found the pain debilitating and decreasing thier quality of life as they were unable to perform activities of daily living such as ambulating short distances and getting in and out of the car. After a thorough work-up including x-rays that demonstrated joint space narrowing, [id number] contact, subchondral sclerosis, and osteophyte formation as well as discussing risks and benefits and other treatment options, the patient elected to proceed with a right total knee replacement. Hospital Course Hospital Course: They were brought to the operating room on 07/24/2019 and underwent a right total knee arthroplasty and tolerated procedure very well with out complication. They were then admitted to the hospital floor for postoperative medical management, monitoring, and pain control. On postoperative day #1 they were ambulating well with physical therapy, to the degree that they approved them for discharge home. They were discharged home on 1. They had no acute events or complications over the course of their stay. All detailed instructions and prescriptions were provided to the patient prior to admission on the year prior office visit. Physical Exam Vital Signs: Temp Pulse Resp BP Pulse Ox 98.6 F 80 17 136/62 H 98 07/25/19 07:22 07/25/19 07:22 07/25/19 07:22 07/25/19 07:22 07/25/19 07:22 Intake & Output 07/24/19 07/25/19 07/26/19 06:59 06:59 06:59 Intake Total 2620 Output Total 1815 Balance 805 Weight 108.4 kg Results Laboratory Results: Potassium 4.6 mmol/L (3.6-5.0) 07/24/19 08:24 Glucose 212 mg/dL (75-110) H 07/24/19 08:24 POC Glucose 272 mg/dL (70-110) H 07/24/19 15:14 Impressions: Knee X-Ray 07/24/19 00:00 IMPRESSION: Right knee arthroplasty. Refer to operative note for further information. Stroke Is this a Stroke Patient?: No Acute Heart Failure - Is this a Heart Failure Patient?: No
[2019-07-25] MEDS: GABAPENTIN 100 MG CAPSULE PO SCH (09:09)
[2019-07-25] MEDS ORDERED: POLYETHYLENE GLYCOL 3350 POWDER 17 GM/1 PACKET PO SCH (10:00)
[2019-07-25] MEDS ORDERED: ASPIRIN 325 MG TABLET PO SCH (10:00)
[2019-07-25] MEDS ORDERED: CELECOXIB 200 MG CAPSULE PO SCH (10:00)
== END 2019-07-25 10:15 | disposition home or self-care (01) ==
LOC: OROUT 08:02 → 4S 14:32 → OROUT 07-25 10:15
PROVIDERS: ATTEND Orthopaedic Surgery
DX: M17.11 Unilateral primary osteoarthritis, right knee (principal); Z79.899 Other long term (current) drug therapy; E11.9 Type 2 diabetes mellitus without complications; I10 Essential (primary) hypertension; Z85.3 Personal history of malignant neoplasm of breast; Z79.82 Long term (current) use of aspirin; Z79.891 Long term (current) use of opiate analgesic; Z88.8 Allergy status to other drugs, medicaments and biological substances; E66.9 Obesity, unspecified
CPT/HCPCS: 36415; 82962; 82947; 84132; 73560; 97110; 97116; 97163; 97535; 97165; 01402; 27447; C1713 ×3; C1887; C1776; J2795; A9270 ×11; J2250; J3490 ×3; J0690 ×2; J1100; J0171; J1885 ×2; J2405; J7060 ×3; J7030; J2704; J3370; J3010; S0119